=== PATIENT | male | born 1960 | race Caucasian/White ===

== ENCOUNTER 2022-11-25 08:58 | Outpatient (CLI) | payer OTHER | END 2022-11-25 08:59 | disposition home or self-care (01) | LOC: CSHMRI 08:58 | PROVIDERS: ATTEND Family Medicine | DX: M54.50 Low back pain, unspecified (principal); M47.816 Spondylosis without myelopathy or radiculopathy, lumbar region; M48.061 Spinal stenosis, lumbar region without neurogenic claudication | CPT/HCPCS: 36415; 72100; 72148; 80053; 80061; 81001; 82043; 83036; 85025; 93923 ==

== ENCOUNTER 2023-02-14 09:27 | Outpatient (CLI) | payer OTHER | END 2023-02-14 09:28 | disposition home or self-care (01) | LOC: CSHULT 09:27 | PROVIDERS: ATTEND Family Medicine | DX: Z13.6 Encounter for screening for cardiovascular disorders (principal); Z12.2 Encounter for screening for malignant neoplasm of respiratory organs; F17.211 Nicotine dependence, cigarettes, in remission; I25.10 Atherosclerotic heart disease of native coronary artery without angina pectoris; I25.84 Coronary atherosclerosis due to calcified coronary lesion | CPT/HCPCS: 71271; 76706 ==